=== PATIENT | male | born 1990 | race Caucasian/White ===

== ENCOUNTER 2017-06-23 09:26 | Inpatient (IN) | payer OTHER ==
[2017-06-23 10:37] VITALS: BMI 25.2
--- NOTE | 2017-06-23 11:12 | HP ---
CIWA Score - CIWA Score Nausea/Vomitin-Mild Nausea/No Vomiting Muscle Tremors: 4-Moderate,w/Arms Extend Anxiety: 4-Mod. Anxious/Guarded Agitation: 1-Slight > Activity Paroxysmal Sweats: 1-Minimal Palms Moist Orientation: 0-Oriented Tacttile Disturbances: 1-Very Mild Itch/Numbness Auditory Disturbances: 1-Very Mild Visual Disturbances: 1-Very Mild Sensitivity Headache: 2-Mild CIWA-Ar Total Score: 16 Admission ROS BHS - HPI Chief Complaint: I want to stop drinking, I'm agitated Allergies/Adverse Reactions: Allergies Allergy/AdvReac Type Severity Reaction Status Date / Time No Known Allergies Allergy Verified 06/23/17 11:08 History of Present Illness: 27 yo gentleman here for detox from alcohol. Patient was previously in detox a month ago in [facility]. NO seizures but does have black outs. Noted [place] he gets oxycodone 30mg tid monthly last received 06/19/17 - he states he 'throws it away' - urine tox negative for oxycodone. Exam Limitations: No Limitations - Ebola screening Have you traveled outside of the country in the last 21 days: No Have you had contact with anyone from an Ebola affected area: No Have you been sick,other than usual withdrawal symptoms: No Do you have a fever: No - Review of Systems Constitutional: Loss of Appetite, Malaise, Changes in sleep EENT: reports: Blurred Vision, Nose Congestion Respiratory: reports: Wheezing Cardiac: reports: No Symptoms Reported GI: reports: Nausea, Abdominal cramping : reports: Frequency Musculoskeletal: reports: Joint Pain (right knee) Integumentary: reports: Dryness Neuro: reports: Headache Endocrine: reports: No Symptoms Reported Hematology: reports: No Symptoms Reported Psychiatric: reports: Judgement Intact, Mood/Affect Appropiate, Orientated x3, Agitated, Anxious Other Systems: Reviewed and Negative Patient History - Patient Medical History Hx Asthma: Yes (on meds) Hx Chronic Obstructive Pulmonary Disease (COPD): No Hx Cancer: No Hx Cardiac Disorders: No Hx Congestive Heart Failure: No Hx Hypertension: No Hx Hypercholesterolemia: No Hx Pacemaker: No HX Cerebrovascular Accident: No Hx Seizures: No Hx Dementia: No Hx Diabetes: No Hx Gastrointestinal Disorders: No Hx Liver Disease: No Hx Genitourinary Disorders: No Hx Sexually Transmitted Disorders: No Hx Renal Disease (ESRD): No Hx Thyroid Disease: No Hx Human Immunodeficiency Virus (HIV): No Hx Hepatitis C: No Hx Depression: No Hx Suicide Attempt: No Hx Bipolar Disorder: No Hx Schizophrenia: No - Patient Surgical History Past Surgical History: Yes Hx Orthopedic Surgery: Yes (right knee ) - PPD History Previous Implant?: Yes Documented Results: Negative w/o proof Implanted On Prior R Admission?: No PPD to be Administered?: Yes - Reproductive History Patient is a Female of Child Bearing Age (11 -55 yrs old): No (male) - Smoking Cessation Smoking history: Current some day smoker Aproximately how many cigarettes per day: 1 Initiated information on smoking cessation: Yes 'Breaking Loose' booklet given: 06/23/17 (give on floor) - Substance & Tx. History Hx Alcohol Use: Yes Hx Substance Use: No Substance Use Type: Alcohol Hx Substance Use Treatment: Yes (detox) - Substances Abused Alcohol Route: Oral Frequency: Daily Amount used: 12 pack of 24 oz beer; 1 pint liquor Age of first use: 18 Date of Last Use: 06/23/17 Family Disease History - Family Disease History Family Disease History: Other: Father (living, no contact, etoh), Mother (living , asthma), Brother (two - living - asthma), Sister (two - living - no contact) Admission Physical Exam S - Vital Signs Vital Signs: Vital Signs - 24 hr 06/23/17 10:33 Pulse Rate 79 Respiratory 18 Rate Blood Pressure 126/74 - Physical General Appearance: Yes: Nourished, Appropriately Dressed, Moderate Distress, Irritable, Anxious HEENTM: Yes: Hearing grossly Normal, Normocephalic, Normal Voice, Pharynx Normal , Tm's normal Respiratory: Yes: No Respiratory Distress, Rhonchi, Wheezing Neck: Yes: No masses,lesions,Nodules, Supple Breast: Yes: Breast Exam Deferred Cardiology: Yes: Regular Rhythm, Regular Rate Abdominal: Yes: Flat, Soft Genitourinary: Yes: Frequency Back: Yes: Normal Inspection Musculoskeletal: Yes: full range of Motion, Gait Steady, Other (right knee with surgical scar) Extremities: Yes: Normal Inspection, Non-Tender Neurological: Yes: Fully Oriented, Alert, Normal Response, Other (agitated, restless) Integumentary: Yes: Normal Color, Warm Lymphatic: Yes: Within Normal Limits - Diagnostic (1) Alcohol dependence with uncomplicated withdrawal Current Visit: Yes Status: Chronic (2) Asthma Current Visit: Yes Status: Acute Qualifiers: Asthma severity: moderate (3) Knee pain Current Visit: Yes Status: Acute Qualifiers: Chronicity: chronic Laterality: right Qualified Code(s): M25.561 - Pain in right knee; G89.29 - Other chronic pain; G89.29 - Other chronic pain Cleared for Admission BHS - Detox or Rehab [facility] Level of Care: Medically Managed Detox Regimen/Protocol: Librium [facility] Breath Alcohol Content Breath Alcohol Content: 0.009 Urine Drug Screen - Results Drug Screen Negative: Yes
[2017-06-23] MEDS ORDERED: guaiFENesin/D-METHORPHAN HB 10 ML UNIT-DOSE CUPS PO PRN (11:17)
[2017-06-23] MEDS ORDERED: ACETAMINOPHEN 325 MG TABLET (FP) PO PRN (11:17)
[2017-06-23] MEDS ORDERED: IBUPROFEN 400 MG TABLET (FP) PO PRN (11:17)
[2017-06-23] MEDS ORDERED: MENTHOL/PHENOL 1 EACH UD MM PRN (11:17)
[2017-06-23] MEDS ORDERED: LOPERAMIDE HCL 2 MG CAPSULE PO PRN (11:17)
[2017-06-23] MEDS ORDERED: MAG HYDROX/AL HYDROX/SIMETH 30 ML UNIT-DOSE CUP PO PRN (11:17)
[2017-06-23] MEDS ORDERED: P-EPHED 60MG/TRIPROLIDI 2.5MG TABLET PO PRN (11:17)
[2017-06-23] MEDS ORDERED: MAGNESIUM CITRATE 300 ML BOTTLE PO PRN (11:17)
[2017-06-23] MEDS ORDERED: chlordiazePOXIDE HCL 25 MG CAPSULE PO PRN (11:17)
[2017-06-23] MEDS ORDERED: MAGNESIUM HYDROX 2400MG/30ML ORAL SUSPENSION 30 ML CUP PO PRN (11:17)
[2017-06-23] MEDS ORDERED: hydrOXYzine PAMOATE 25 MG CAPSULE (FP) PO PRN (11:17)
[2017-06-23] MEDS ORDERED: ALBUTEROL SO4 18 GM HFA INHALER IH PRN (11:19)
[2017-06-23] MEDS ORDERED: chlordiazePOXIDE HCL 25 MG CAPSULE PO ONE (13:00)
[2017-06-23] MEDS: METHYL SALICYLATE/MENTHOL OINT 30 GM TUBE TP SCH (14:21)
--- NOTE | 2017-06-23 16:24 | EKG ---
Test Reason : Blood Pressure : / mmHG Vent. Rate : 079 BPM Atrial Rate : 079 BPM P-R Int : 146 ms QRS Dur : 088 ms QT Int : 372 ms P-R-T Axes : 067 064 048 degrees QTc Int : 426 ms NORMAL SINUS RHYTHM NORMAL ECG NO PREVIOUS ECGS AVAILABLE Confirmed by SEAN BOWMAN MD ([id number]) on 06/23/2017 4:23:46 PM Referred By: Josué Bacon Confirmed By:SEAN BOWMAN MD
[2017-06-23] MEDS: chlordiazePOXIDE HCL 25 MG CAPSULE PO SCH ×2 (17:51→22:05)
[2017-06-23 21:38] LABS: URINE APPEARANCE CLEAR; URINE BILIRUBIN NEGATIVE (NEGATIVE); URINE BLOOD NEGATIVE (NEGATIVE); URINE COLOR LTYELLOW; URINE GLUCOSE (UA) NEGATIVE (NEGATIVE); URINE KETONE NEGATIVE (NEGATIVE); URINE LEUK ESTERASE NEGATIVE (NEGATIVE); URINE NITRITE NEGATIVE (NEGATIVE); URINE PROTEIN NEGATIVE (NEGATIVE); URINE UROBILINOGEN NEGATIVE mg/dL (0.2-1.0)
[2017-06-23] MEDS: THIAMINE HCL 100 MG TABLET (FP) PO SCH (22:05)
[2017-06-24] MEDS: chlordiazePOXIDE HCL 25 MG CAPSULE PO SCH ×4 (06:26→21:59)
[2017-06-24 10:04] LABS: HEMATOCRIT 46.4 % (35.4-49); HEMOGLOBIN 14.9 GM/dL (11.7-16.9); MCH 27.4 pg (25.7-33.7); MEAN CELL VOLUME 85.4 fl (80-96); MEAN PLT VOLUME 9.1 fl (7.5-11.1); PLATELET COUNT 255 K/MM3 (134-434); RBC 5.43 M/mm3 (4.00-5.60); RDW 14.2 % (11.9-15.9); WHITE BLOOD COUNT 8.6 K/mm3 (4.0-10.0)
[2017-06-24 10:24] LABS: ALBUMIN 3.7 g/dl (3.4-5.0); ANION GAP 5 (8-16); BILIRUBIN,TOTAL 0.8 mg/dL (0.2-1.0); BLOOD UREA NITROGEN 7 mg/dL (7-18); CALCIUM 8.7 mg/dL (8.5-10.1); CHLORIDE 104 mmol/L (98-107); CO2 32 mmol/L (21-32); GLUCOSE,RANDOM 84 mg/dL (74-106); POTASSIUM 3.7 mmol/L (3.5-5.1); SGOT/AST 18 U/L (15-37); SGPT/ALT 24 U/L (12-78); SODIUM 141 mmol/L (136-145); TOT PROT 7.1 g/dl (6.4-8.2)
[2017-06-24 10:25] LABS: ALK PHOS 110 U/L (45-117)
[2017-06-24] MEDS: PRENATAL VITAMINS W/ FOLIC ACID TABLET (FP) PO SCH (10:41)
[2017-06-24] MEDS: METHYL SALICYLATE/MENTHOL OINT 30 GM TUBE TP SCH (10:42)
--- NOTE | 2017-06-24 11:11 | PN ---
[facility] CIWA - CIWA Score Nausea/Vomitin-Mild Nausea/No Vomiting Muscle Tremors: 3 Anxiety: 3 Agitation: 4-Moderately Restless Paroxysmal Sweats: 3 Orientation: 0-Oriented Tacttile Disturbances: 0-None Auditory Disturbances: 0-None Visual Disturbances: 0-None Headache: 0-None Present CIWA-Ar Total Score: 14 BHS Progress Note (SOAP) Subjective: tremors slight nausea night sweats Objective: 06/24/17 11:10 Vital Signs Temperature 96.2 F L 06/24/17 09:11 Pulse Rate 74 06/24/17 09:11 Respiratory Rate 18 06/24/17 09:11 Blood Pressure 128/89 06/24/17 09:11 O2 Sat by Pulse Oximetry (%) Laboratory Last Values WBC 8.6 K/mm3 (4.0-10.0) 06/24/17 07:30 RBC 5.43 M/mm3 (4.00-5.60) 06/24/17 07:30 Hgb 14.9 GM/dL (11.7-16.9) 06/24/17 07:30 Hct 46.4 % (35.4-49) 06/24/17 07:30 MCV 85.4 fl (80-96) 06/24/17 07:30 MCH 27.4 pg (25.7-33.7) 06/24/17 07:30 MCHC 32.0 g/dl (32.0-35.9) 06/24/17 07:30 RDW 14.2 % (11.9-15.9) 06/24/17 07:30 Plt Count 255 K/MM3 (134-434) 06/24/17 07:30 MPV 9.1 fl (7.5-11.1) 06/24/17 07:30 Sodium 141 mmol/L (136-145) 06/24/17 07:30 Potassium 3.7 mmol/L (3.5-5.1) 06/24/17 07:30 Chloride 104 mmol/L (98-107) 06/24/17 07:30 Carbon Dioxide 32 mmol/L (21-32) 06/24/17 07:30 Anion Gap 5 (8-16) L 06/24/17 07:30 BUN 7 mg/dL (7-18) 06/24/17 07:30 Creatinine 1.0 mg/dL (0.7-1.3) 06/24/17 07:30 Creat Clearance w eGFR > 60 (>60) 06/24/17 07:30 Random Glucose 84 mg/dL (74-106) 06/24/17 07:30 Calcium 8.7 mg/dL (8.5-10.1) 06/24/17 07:30 Total Bilirubin 0.8 mg/dL (0.2-1.0) 06/24/17 07:30 AST 18 U/L (15-37) 06/24/17 07:30 ALT 24 U/L (12-78) 06/24/17 07:30 Alkaline Phosphatase 110 U/L (45-117) 06/24/17 07:30 Total Protein 7.1 g/dl (6.4-8.2) 06/24/17 07:30 Albumin 3.7 g/dl (3.4-5.0) 06/24/17 07:30 Urine Color Ltyellow 06/23/17 14:00 Urine Appearance Clear 06/23/17 14:00 Urine pH 6.0 (5.0-8.0) 06/23/17 14:00 Ur Specific [place] 1.010 (1.001-1.035) 06/23/17 14:00 Urine Protein Negative (NEGATIVE) 06/23/17 14:00 Urine Glucose (UA) Negative (NEGATIVE) 06/23/17 14:00 Urine Ketones Negative (NEGATIVE) 06/23/17 14:00 Urine Blood Negative (NEGATIVE) 06/23/17 14:00 Urine Nitrite Negative (NEGATIVE) 06/23/17 14:00 Urine Bilirubin Negative (NEGATIVE) 06/23/17 14:00 Urine Urobilinogen Negative mg/dL (0.2-1.0) 06/23/17 14:00 Ur Leukocyte Esterase Negative (NEGATIVE) 06/23/17 14:00 labs noted Assessment: 06/24/17 11:11 withdrawal sx no acute distress noted Plan: continue detox
[2017-06-24] MEDS ORDERED: ALBUTEROL SO4 18 GM HFA INHALER IH PRN (21:28)
[2017-06-24] MEDS: THIAMINE HCL 100 MG TABLET (FP) PO SCH (21:59)
[2017-06-25] MEDS: chlordiazePOXIDE HCL 25 MG CAPSULE PO SCH (06:50)
[2017-06-25] MEDS: METHYL SALICYLATE/MENTHOL OINT 30 GM TUBE TP SCH (10:04)
[2017-06-25] MEDS: PRENATAL VITAMINS W/ FOLIC ACID TABLET (FP) PO SCH (10:04)
[2017-06-25] MEDS: chlordiazePOXIDE 5 MG CAPSULE PO SCH ×2 (10:05→18:13)
--- NOTE | 2017-06-25 10:52 | PN ---
[facility] CIWA - CIWA Score Nausea/Vomitin-No Nausea/No Vomiting Muscle Tremors: 4-Moderate,w/Arms Extend Anxiety: 4-Mod. Anxious/Guarded Agitation: 3 Paroxysmal Sweats: No Perspiration Orientation: 0-Oriented Tacttile Disturbances: 2-Mild Itch/Numbness/Burn Auditory Disturbances: 0-None Visual Disturbances: 0-None Headache: 0-None Present CIWA-Ar Total Score: 13 S Progress Note (SOAP) Subjective: SLIGHT ANXIETY, TREMORS. ALERT O X 3. OOB WITH STEADY GAIT. Objective: 06/25/17 10:52 Vital Signs Temperature 95.6 F L 06/25/17 09:13 Pulse Rate 60 06/25/17 09:13 Respiratory Rate 20 06/25/17 09:13 Blood Pressure 124/83 06/25/17 09:13 O2 Sat by Pulse Oximetry (%) Laboratory Last Values WBC 8.6 K/mm3 (4.0-10.0) 06/24/17 07:30 RBC 5.43 M/mm3 (4.00-5.60) 06/24/17 07:30 Hgb 14.9 GM/dL (11.7-16.9) 06/24/17 07:30 Hct 46.4 % (35.4-49) 06/24/17 07:30 MCV 85.4 fl (80-96) 06/24/17 07:30 MCH 27.4 pg (25.7-33.7) 06/24/17 07:30 MCHC 32.0 g/dl (32.0-35.9) 06/24/17 07:30 RDW 14.2 % (11.9-15.9) 06/24/17 07:30 Plt Count 255 K/MM3 (134-434) 06/24/17 07:30 MPV 9.1 fl (7.5-11.1) 06/24/17 07:30 Sodium 141 mmol/L (136-145) 06/24/17 07:30 Potassium 3.7 mmol/L (3.5-5.1) 06/24/17 07:30 Chloride 104 mmol/L (98-107) 06/24/17 07:30 Carbon Dioxide 32 mmol/L (21-32) 06/24/17 07:30 Anion Gap 5 (8-16) L 06/24/17 07:30 BUN 7 mg/dL (7-18) 06/24/17 07:30 Creatinine 1.0 mg/dL (0.7-1.3) 06/24/17 07:30 Creat Clearance w eGFR > 60 (>60) 06/24/17 07:30 Random Glucose 84 mg/dL (74-106) 06/24/17 07:30 Calcium 8.7 mg/dL (8.5-10.1) 06/24/17 07:30 Total Bilirubin 0.8 mg/dL (0.2-1.0) 06/24/17 07:30 AST 18 U/L (15-37) 06/24/17 07:30 ALT 24 U/L (12-78) 06/24/17 07:30 Alkaline Phosphatase 110 U/L (45-117) 06/24/17 07:30 Total Protein 7.1 g/dl (6.4-8.2) 06/24/17 07:30 Albumin 3.7 g/dl (3.4-5.0) 06/24/17 07:30 Urine Color Ltyellow 06/23/17 14:00 Urine Appearance Clear 06/23/17 14:00 Urine pH 6.0 (5.0-8.0) 06/23/17 14:00 Ur Specific [place] 1.010 (1.001-1.035) 06/23/17 14:00 Urine Protein Negative (NEGATIVE) 06/23/17 14:00 Urine Glucose (UA) Negative (NEGATIVE) 06/23/17 14:00 Urine Ketones Negative (NEGATIVE) 06/23/17 14:00 Urine Blood Negative (NEGATIVE) 06/23/17 14:00 Urine Nitrite Negative (NEGATIVE) 06/23/17 14:00 Urine Bilirubin Negative (NEGATIVE) 06/23/17 14:00 Urine Urobilinogen Negative mg/dL (0.2-1.0) 06/23/17 14:00 Ur Leukocyte Esterase Negative (NEGATIVE) 06/23/17 14:00 RPR Titer Nonreactive (NONREACTIVE) 06/24/17 07:30 Assessment: 06/25/17 10:52 WITHDRAWAL SX Plan: CONTINUE DETOX
[2017-06-25] MEDS ORDERED: chlordiazePOXIDE 5 MG CAPSULE PO SCH (17:00)
[2017-06-25] MEDS: THIAMINE HCL 100 MG TABLET (FP) PO SCH (21:58)
[2017-06-25] MEDS: chlordiazePOXIDE HCL 10 MG CAPSULE PO SCH (22:00)
[2017-06-26] MEDS: chlordiazePOXIDE HCL 10 MG CAPSULE PO SCH (05:41)
[2017-06-26 06:08] VITALS: BP 105/67; PULSE 60; TEMP 96.9
[2017-06-26] MEDS: PRENATAL VITAMINS W/ FOLIC ACID TABLET (FP) PO SCH (09:16)
[2017-06-26] MEDS: METHYL SALICYLATE/MENTHOL OINT 30 GM TUBE TP SCH (09:16)
--- NOTE | 2017-06-26 09:31 | DS ---
[facility] Detox Discharge Summary Admission Date: 06/23/17 Discharge Date: 06/26/17 - History Present History: Alcohol Dependence Additional Comments: DETOX COMPLETED. Pertinent Past History: ASTHMA - Physical Exam Results Vital Signs: Vital Signs Temperature 96.9 F L 06/26/17 06:07 Pulse Rate 60 06/26/17 06:07 Respiratory Rate 18 06/26/17 06:07 Blood Pressure 105/67 06/26/17 06:07 O2 Sat by Pulse Oximetry (%) Pertinent Admission Physical Exam Findings: WITHDRAWAL SX Laboratory Last Values WBC 8.6 K/mm3 (4.0-10.0) 06/24/17 07:30 RBC 5.43 M/mm3 (4.00-5.60) 06/24/17 07:30 Hgb 14.9 GM/dL (11.7-16.9) 06/24/17 07:30 Hct 46.4 % (35.4-49) 06/24/17 07:30 MCV 85.4 fl (80-96) 06/24/17 07:30 MCH 27.4 pg (25.7-33.7) 06/24/17 07:30 MCHC 32.0 g/dl (32.0-35.9) 06/24/17 07:30 RDW 14.2 % (11.9-15.9) 06/24/17 07:30 Plt Count 255 K/MM3 (134-434) 06/24/17 07:30 MPV 9.1 fl (7.5-11.1) 06/24/17 07:30 Sodium 141 mmol/L (136-145) 06/24/17 07:30 Potassium 3.7 mmol/L (3.5-5.1) 06/24/17 07:30 Chloride 104 mmol/L (98-107) 06/24/17 07:30 Carbon Dioxide 32 mmol/L (21-32) 06/24/17 07:30 Anion Gap 5 (8-16) L 06/24/17 07:30 BUN 7 mg/dL (7-18) 06/24/17 07:30 Creatinine 1.0 mg/dL (0.7-1.3) 06/24/17 07:30 Creat Clearance w eGFR > 60 (>60) 06/24/17 07:30 Random Glucose 84 mg/dL (74-106) 06/24/17 07:30 Calcium 8.7 mg/dL (8.5-10.1) 06/24/17 07:30 Total Bilirubin 0.8 mg/dL (0.2-1.0) 06/24/17 07:30 AST 18 U/L (15-37) 06/24/17 07:30 ALT 24 U/L (12-78) 06/24/17 07:30 Alkaline Phosphatase 110 U/L (45-117) 06/24/17 07:30 Total Protein 7.1 g/dl (6.4-8.2) 06/24/17 07:30 Albumin 3.7 g/dl (3.4-5.0) 06/24/17 07:30 Urine Color Ltyellow 06/23/17 14:00 Urine Appearance Clear 06/23/17 14:00 Urine pH 6.0 (5.0-8.0) 06/23/17 14:00 Ur Specific [place] 1.010 (1.001-1.035) 06/23/17 14:00 Urine Protein Negative (NEGATIVE) 06/23/17 14:00 Urine Glucose (UA) Negative (NEGATIVE) 06/23/17 14:00 Urine Ketones Negative (NEGATIVE) 06/23/17 14:00 Urine Blood Negative (NEGATIVE) 06/23/17 14:00 Urine Nitrite Negative (NEGATIVE) 06/23/17 14:00 Urine Bilirubin Negative (NEGATIVE) 06/23/17 14:00 Urine Urobilinogen Negative mg/dL (0.2-1.0) 06/23/17 14:00 Ur Leukocyte Esterase Negative (NEGATIVE) 06/23/17 14:00 RPR Titer Nonreactive (NONREACTIVE) 06/24/17 07:30 - Treatment Hospital Course: Detox Protocol Followed, Detoxed Safely, Responded well, Discharged Condition Good - Medication Discharge Medications: Ambulatory Orders Albuterol Sulfate Inhaler - [Ventolin Hfa Inhaler -] 2 inh PO Q4H PRN 06/23/17 Oxycodone HCl 30 mg PO TID 06/23/17 - Diagnosis (1) Asthma Current Visit: Yes Status: Acute Qualifiers: Asthma severity: moderate (2) Knee pain Current Visit: Yes Status: Chronic Qualifiers: Chronicity: chronic Laterality: right Qualified Code(s): M25.561 - Pain in right knee; G89.29 - Other chronic pain; G89.29 - Other chronic pain (3) Nicotine dependence Current Visit: Yes Status: Acute Qualifiers: Nicotine product type: cigarettes Substance use status: in withdrawal Qualified Code(s): F17.213 - Nicotine dependence, cigarettes, with withdrawal (4) Alcohol dependence with uncomplicated withdrawal Current Visit: Yes Status: Acute - AMA Did Patient Leave Against Medical Advice: No
[2017-06-26] MEDS ORDERED: chlordiazePOXIDE HCL 10 MG CAPSULE PO SCH (17:00)
== END 2017-06-26 09:28 | disposition home or self-care (01) | DRG 775 ==
LOC: YASAS 09:26 → Y3N 12:49
PROVIDERS: ADMIT Internal Medicine; ATTEND Internal Medicine
PROC: HZ2ZZZZ Detoxification Services for Substance Abuse Treatment (ICD-10-PCS; principal; 2017-06-23)
DX: F10.230 Alcohol dependence with withdrawal, uncomplicated (principal); F17.213 Nicotine dependence, cigarettes, with withdrawal; J45.909 Unspecified asthma, uncomplicated; M25.561 Pain in right knee; G89.29 Other chronic pain
CPT/HCPCS: 36415; 80053; 81003; 85027; 86593; 93005; 93010

== ENCOUNTER 2020-02-25 20:23 | Inpatient (IN) | payer OTHER ==
--- OUTSIDE RECORDS SUMMARY | 2020-02-25 20:28 | XMS ---
:1990 Author Organization [facility] Support Name Relationship Address Phone UE, UNEMPLOYED Unavailable Unavailable Unavailable UE Unavailable Unavailable Unavailable [place] [address] JOHNNIE JURADO Unavailable [address] [place] [address] Re-disclosure Warning The records that you are about to access may contain information from federally- assisted alcohol or drug abuse programs. If such information is present, then the following federally mandated warning applies: This information has been disclosed to you from records protected by federal confidentiality rules (42 CFR part 2). The federal rules prohibit you from making any further disclosure of this information unless further disclosure is expressly permitted by the written consent of the person to whom it pertains or as otherwise permitted by 42 CFR part 2. A general authorization for the release of medical or other information is NOT sufficient for this purpose. The Federal rules restrict any use of the information to criminally investigate or prosecute any alcohol or drug abuse patient.The records that you are about to access may contain highly sensitive health information, the redisclosure of which is protected by Article 27-F of the [facility] Public Health law. If you continue you may haveaccess to information: Regarding HIV / AIDS; Provided by facilities licensed or operated by the [facility] Office of Mental Health; or Provided by the [facility] Office for People With Developmental Disabilities. If such information is present, then the following [facility] mandated warning applies: This information has been disclosed to you from confidential records which are protected by state law. State law prohibits you from making any further disclosure of this information without the specific written consent of the person to whom it pertains, or as otherwise permitted by law. Any unauthorized further disclosure in violation of state law may result in a fine or detention sentence or both. A general authorization for the release of medical or other information is NOT sufficient authorization for further disclosure. Insurance Providers Payer name Policy type Policy ID Covered Covered constitution party's Policy P haylee / Coverage constitution party ID relationship to Garcia Inf ormation type garcia SUNDAY [id number] SP [id number] 400 HEALTH NON CAP SUNDAY [id number] SP [id number] 400 HEALTH NON CAP Results ID Date Data Source [id number] 01/06/2020 12:00:00 AM EDT [place] Name Value Range Interpretation Code Description Data Delaney rce(s) Supporting Document(s ) COVID-19 [facility] RT-PCR This lab was ordered by [facility] and reported by [facility]. Procedure
[2020-02-25 20:44] VITALS: BMI 26.6
--- NOTE | 2020-02-25 21:07 | HP ---
CIWA Score Nausea/Vomitin Muscle Tremors: 4-Moderate,w/Arms Extend Anxiety: 3 Agitation: 4-Moderately Restless Paroxysmal Sweats: 2 Orientation: 1-Uncertain about Date Tacttile Disturbances: 0-None Auditory Disturbances: 0-None Visual Disturbances: 0-None Headache: 0-None Present CIWA-Ar Total Score: 16 - Admission Criteria [facility] Guidelines: Admission for Medically Managed Detox: Requires at least one of the followin. CIWA greater than 12 2. Seizures within the past 24 hours 3. Delirium tremens within the past 24 hours 4. Hallucinations within the past 24 hours 5. Acute intervention needed for co occurring medical disorder 6. Acute intervention needed for co occurring psychiatric disorder 7. Severe withdrawal that cannot be handled at a lower level of care (continued vomiting, continued diarrhea, abnormal vital signs) requiring intravenous medication and/or fluids 8. Admitting History and Physical - Past Medical History Pulmonary: Yes: Asthma - Smoking History Smoking history: Current some day smoker Have you smoked in the past 12 months: No Aproximately how many cigarettes per day: 1 - Alcohol/Substance Use Hx Alcohol Use: Yes History of Substance Use: reports: Marijuana - Social History ADL: Support Services Occupation: unemployued History of Recent Travel: No Admission ROS [facility] Chief Complaint: Alcohol withdrawal symptoms Allergies/Adverse Reactions: Allergies Allergy/AdvReac Type Severity Reaction Status Date / Time No Known Allergies Allergy Verified 02/25/20 20:40 History of Present Illness: 29 years old male is seeking admission to detox from alcohol. His last admission was for the period 10/05/2019 - 10/24/2019 and he reports that he relapsed a couple of days after he was discharged. He drinks 3 pints of vodka and 2 x 6 pack 12oz. Verdin beer. He has medical history of asthma, eczema, psych. history of depression, anxiety and he denies suicidal ideation at this time. He is unemployed, homeless and denies legal issues. 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 His CIWA score is 16 and SHAZIA is .211 Exam Limitations: No Limitations - Ebola screening Have you traveled outside of the country in the last 21 days: No Have you had contact with anyone from an Ebola affected area: No Have you been sick,other than usual withdrawal symptoms: No Do you have a fever: No - Review of Systems Constitutional: Chills, Loss of Appetite, Malaise, Night Sweats, Changes in sleep EENT: reports: No Symptoms Reported Respiratory: reports: No Symptoms reported Cardiac: reports: No Symptoms Reported GI: reports: Nausea, Poor Appetite, Poor Fluid Intake, Abdominal cramping Musculoskeletal: reports: Back Pain Integumentary: reports: Dryness, Flushing Neuro: reports: Tremors Endocrine: reports: No Symptoms Reported Hematology: reports: No Symptoms Reported Psychiatric: reports: Mood/Affect Appropiate, Orientated x3, Agitated, Anxious Other Systems: Reviewed and Negative Patient History - Patient Medical History Hx Anemia: No Hx Asthma: Yes (Albuterol) Hx Chronic Obstructive Pulmonary Disease (COPD): No Hx Cancer: No Hx Cardiac Disorders: No Hx Congestive Heart Failure: No Hx Hypertension: No Hx Hypercholesterolemia: No Hx Pacemaker: No HX Cerebrovascular Accident: No Hx Seizures: No Hx Dementia: No Hx Diabetes: No Hx Gastrointestinal Disorders: No Hx Liver Disease: No Hx Genitourinary Disorders: No Hx Sexually Transmitted Disorders: No Hx Renal Disease (ESRD): No Hx Thyroid Disease: No Hx Human Immunodeficiency Virus (HIV): No (Negative 06/2019) Hx Hepatitis C: No Hx Depression: Yes (+ anxiety - Not on medication) Hx Suicide Attempt: No (Denies suicidal ideation at this time) Hx Bipolar Disorder: No Hx Schizophrenia: No - Patient Surgical History Past Surgical History: Yes Hx Neurologic Surgery: No Hx Cataract Extraction: No Hx Cardiac Surgery: No Hx Lung Surgery: No Hx Breast Surgery: No Hx Breast Biopsy: No Hx Abdominal Surgery: No Hx Appendectomy: No Hx Cholecystectomy: No Hx Genitourinary Surgery: No Hx Section: No Hx Orthopedic Surgery: Yes (right knee 2015,) Anesthesia Reaction: No - PPD History Previous Implant?: Yes Documented Results: Negative w/proof Implanted On Prior R Admission?: Yes Date: 10/07/19 Results: 0 mm PPD to be Administered?: No - Reproductive History Patient is a Female of Child Bearing Age (11 -55 yrs old): No (Male) - Smoking Cessation Smoking history: Unknown if ever smoked Have you smoked in the past 12 months: No Hx Chewing Tobacco Use: No Initiated information on smoking cessation: No - Substance & Tx. History Hx Alcohol Use: Yes Hx Substance Use: Yes Substance Use Type: Alcohol, Marijuana Hx Substance Use Treatment: Yes ([facility]) - Substances abused Alcohol Substance route: Oral Frequency: Daily Amount used: 3 pints of vodka and 2 x 6 pack 12oz. [place]din beer Age of first use: 16 Date of last use: 02/25/20 Admission Physical Exam [facility] - Vital Signs Vital Signs: Vital Signs - 24 hr 02/25/20 02/25/20 20:43 20:46 Temperature 97.4 F L 97.4 F L Pulse Rate 94 H 94 H Respiratory 19 19 Rate Blood Pressure 110/72 110/72 - Physical General Appearance: Yes: Intoxicated, Tremorous, Irritable, Anxious HEENTM: Yes: Within Normal Limits Respiratory: Yes: Lungs Clear, Normal Breath Sounds, No Respiratory Distress Neck: Yes: Within Normal Limits Breast: Yes: Breast Exam Deferred Cardiology: Yes: Tachycardia Abdominal: Yes: Normal Bowel Sounds Genitourinary: Yes: Within Normal Limits Back: Yes: Normal Inspection Musculoskeletal: Yes: Back pain Extremities: Yes: Tremors Neurological: Yes: Within Normal Limits Integumentary: Yes: Warm Lymphatic: Yes: Within Normal Limits - Diagnostic (1) Cannabis dependence Current Visit: Yes Status: Chronic (2) Depression Current Visit: Yes Status: Chronic Qualifiers: Depression Type: unspecified Qualified Code(s): F32.9 - Major depressive disorder, single episode, unspecified (3) Anxiety Current Visit: Yes Status: Chronic (4) Alcohol dependence with uncomplicated withdrawal Current Visit: Yes Status: Acute (5) Asthma Current Visit: Yes Status: Chronic Qualifiers: Asthma severity: mild Asthma persistence: intermittent Cleared for Admission [facility] - Detox or Rehab [facility] Level of Care: Medically Managed Detox Regimen/Protocol: Librium Claeared for Rehab Admission: No Breathalyzer - Breathalyzer Breathalyzer: 0.211 Urine Drug Screen - Test Device Lot number: [id number] Expiration date: 01/12/22 - Control Is test valid?: Yes - Results Drug screen NEGATIVE: No Urine drug screen results: THC-Marijuana Inpatient Rehab Admission - Rehab Decision to Admit Inpatient rehab admission?: No
[2020-02-25] MEDS ORDERED: ACETAMINOPHEN 325 MG TABLET (FP) PO PRN ×2 (21:19)
[2020-02-25] MEDS ORDERED: MAG HYDROX/AL HYDROX/SIMETH 30 ML UNIT-DOSE CUP PO PRN (21:19)
[2020-02-25] MEDS ORDERED: IBUPROFEN 400 MG TABLET (FP) PO PRN (21:19)
[2020-02-25] MEDS ORDERED: METHOCARBAMOL 500 MG TABLET PO PRN (21:19)
[2020-02-25] MEDS ORDERED: NICOTINE POLACRILEX 2 MG GUM BUC PRN (21:19)
[2020-02-25] MEDS ORDERED: chlordiazePOXIDE HCL 25 MG CAPSULE PO PRN (21:19)
[2020-02-25] MEDS ORDERED: MAGNESIUM HYDROX 2400MG/30ML ORAL SUSPENSION 30 ML CUP PO PRN (21:19)
[2020-02-25] MEDS ORDERED: ONDANSETRON *ODT* 4 MG TABLET SL PRN (21:19)
[2020-02-25] MEDS ORDERED: BISMUTH SUBSALICYLATE 524 MG/30 ML UD PO PRN (21:19)
[2020-02-25] MEDS ORDERED: MAGNESIUM CITRATE 300 ML BOTTLE PO PRN (21:19)
[2020-02-25] MEDS ORDERED: MENTHOL/PHENOL 1 EACH UD MM PRN (21:19)
[2020-02-25] MEDS ORDERED: ALBUTEROL SO4 HFA INHALER IH PRN (21:20)
--- OUTSIDE RECORDS SUMMARY | 2020-02-25 21:23 | XMS ---
:1990 Author Organization [facility] Support Name Relationship Address Phone UE, UNEMPLOYED Unavailable Unavailable Unavailable UE Unavailable Unavailable Unavailable JOHNNIE [place] [address] JOHNNIE JURADO Unavailable [address] [place] [address] Re-disclosure Warning The records that you are [...] is protected by Article 27-F of the [facility] Public Health law. If you continue you may haveaccess to information: Regarding HIV / AIDS; Provided by facilities licensed or operated by the [facility] Office of Mental Health; or Provided by the [facility] Office for People With Developmental Disabilities. If such information is present, then the following [facility] mandated warning applies: This information has been [...] law may result in a fine or long-term sentence or both. A general authorization for the release of medical or other information is NOT sufficient authorization for further disclosure. Insurance Providers Payer name Policy type Policy ID Covered Covered republican's Policy P haylee / Coverage republican ID relationship to Garcia Inf ormation type garcia SUNDAY [id number] SP [id number] 400 HEALTH NON CAP SUNDAY [id number] SP [id number] 400 HEALTH NON CAP Results ID Date Data Source [id number] 01/06/2020 12:00:00 AM EDT [facility] Name Value Range Interpretation Code Description Data Delaney rce(s) Supporting Document(s ) COVID-19 [facility] RT-PCR This lab was ordered by [facility] and reported by [facility]. Procedure
[2020-02-25] MEDS: chlordiazePOXIDE HCL 25 MG CAPSULE PO SCH (22:17)
[2020-02-25] MEDS: hydrOXYzine PAMOATE 25 MG CAPSULE (FP) PO SCH (22:17)
[2020-02-25] MEDS: THIAMINE HCL 100 MG TABLET (FP) PO SCH (22:17)
[2020-02-25] MEDS: MELATONIN 5 MG TABLETS PO SCH (22:17)
[2020-02-26] MEDS: hydrOXYzine PAMOATE 25 MG CAPSULE (FP) PO SCH ×5 (05:42→22:23)
[2020-02-26] MEDS: chlordiazePOXIDE HCL 25 MG CAPSULE PO SCH ×4 (05:42→22:23)
--- NOTE | 2020-02-26 09:54 | EKG ---
Test Reason : Blood Pressure : / mmHG Vent. Rate : 069 BPM Atrial Rate : 069 BPM P-R Int : 162 ms QRS Dur : 094 ms QT Int : 396 ms P-R-T Axes : 063 046 039 degrees QTc Int : 424 ms NORMAL SINUS RHYTHM MINIMAL VOLTAGE CRITERIA FOR LVH, MAY BE NORMAL VARIANT BORDERLINE ECG WHEN COMPARED WITH ECG OF 23-JUN-2017 14:37, NO SIGNIFICANT CHANGE WAS FOUND Confirmed by SALLIE CAGE, SANDRO ([id number]) on 02/26/2020 9:53:48 AM Referred By: Nilson Nguyen Confirmed By:SANDRO RIZO MD
[2020-02-26] MEDS: PRENATAL VITAMINS W/ FOLIC ACID TABLET (FP) PO SCH (10:06)
[2020-02-26] MEDS: NICOTINE 14 MG/24 HOURS TOPICAL PATCH TD SCH (10:07)
[2020-02-26 11:04] LABS: ALBUMIN 3.8 g/dl (3.4-5.0); BILIRUBIN,TOTAL 0.9 mg/dL (0.2-1); BLOOD UREA NITROGEN 8.4 mg/dL (7-18); CREATININE 0.8 mg/dL (0.55-1.3); POTASSIUM 3.9 mmol/L (3.5-5.1); TOT PROT 7.3 g/dl (6.4-8.2)
[2020-02-26 11:12] LABS: HEMATOCRIT 42.7 % (35.4-49); HEMOGLOBIN 13.8 GM/dL (11.7-16.9); MCH 28.3 pg (25.7-33.7); MCHC 32.3 g/dl (32.0-35.9); MEAN CELL VOLUME 87.8 fl (80-96); MEAN PLT VOLUME 8.9 fl (7.5-11.1); PLATELET COUNT 186 K/MM3 (134-434); RBC 4.86 M/mm3 (4.00-5.60); RDW 15.4 % (11.9-15.9); WHITE BLOOD COUNT 3.4 K/mm3 (4.0-10.0)
--- NOTE | 2020-02-26 11:55 | PN ---
S CIWA - CIWA Score Nausea/Vomitin Muscle Tremors: 2 Anxiety: 2 Agitation: 1-Slight > Activity Paroxysmal Sweats: No Perspiration Orientation: 0-Oriented Tacttile Disturbances: 1-Very Mild Itch/Numbness Auditory Disturbances: 0-None Visual Disturbances: 0-None Headache: 2-Mild CIWA-Ar Total Score: 10 BHS Progress Note (SOAP) Subjective: alert,irritable,anxious,interrupted sleep,tremor Objective: 02/26/20 16:06 Vital Signs Temperature 98.2 F 02/26/20 12:36 Pulse Rate 69 02/26/20 12:36 Respiratory Rate 18 02/26/20 12:36 Blood Pressure 112/67 02/26/20 12:36 O2 Sat by Pulse Oximetry (%) 95 02/26/20 12:36 Laboratory Last Values WBC 3.4 K/mm3 (4.0-10.0) L 02/26/20 08:00 RBC 4.86 M/mm3 (4.00-5.60) 02/26/20 08:00 Hgb 13.8 GM/dL (11.7-16.9) 02/26/20 08:00 Hct 42.7 % (35.4-49) 02/26/20 08:00 MCV 87.8 fl (80-96) 02/26/20 08:00 MCH 28.3 pg (25.7-33.7) 02/26/20 08:00 MCHC 32.3 g/dl (32.0-35.9) 02/26/20 08:00 RDW 15.4 % (11.9-15.9) 02/26/20 08:00 Plt Count 186 K/MM3 (134-434) D 02/26/20 08:00 MPV 8.9 fl (7.5-11.1) 02/26/20 08:00 Sodium 142 mmol/L (136-145) 02/26/20 08:00 Potassium 3.9 mmol/L (3.5-5.1) 02/26/20 08:00 Chloride 105 mmol/L (98-107) 02/26/20 08:00 Carbon Dioxide 30 mmol/L (21-32) 02/26/20 08:00 Anion Gap 8 MMOL/L (8-16) 02/26/20 08:00 BUN 8.4 mg/dL (7-18) 02/26/20 08:00 Creatinine 0.8 mg/dL (0.55-1.3) 02/26/20 08:00 Est GFR (CKD-EPI)AfAm 137.96 02/26/20 08:00 Est GFR (CKD-EPI)NonAf 119.03 02/26/20 08:00 Random Glucose 65 mg/dL (74-106) L 02/26/20 08:00 Calcium 9.0 mg/dL (8.5-10.1) 02/26/20 08:00 Total Bilirubin 0.9 mg/dL (0.2-1) 02/26/20 08:00 AST 59 U/L (15-37) H 02/26/20 08:00 ALT 66 U/L (13-61) H 02/26/20 08:00 Alkaline Phosphatase 100 U/L (45-117) 02/26/20 08:00 Total Protein 7.3 g/dl (6.4-8.2) 02/26/20 08:00 Albumin 3.8 g/dl (3.4-5.0) 02/26/20 08:00 Syphilis Serology Non-reactive (NONREACTIVE) 02/26/20 08:00 Assessment: 02/26/20 16:08 withdrawal symptom Plan: continue detox bgm once
[2020-02-26] MEDS: THIAMINE HCL 100 MG TABLET (FP) PO SCH (22:23)
[2020-02-26] MEDS: MELATONIN 5 MG TABLETS PO SCH (22:23)
[2020-02-27] MEDS: chlordiazePOXIDE HCL 25 MG CAPSULE PO SCH ×4 (06:03→22:07)
[2020-02-27] MEDS: hydrOXYzine PAMOATE 25 MG CAPSULE (FP) PO SCH ×2 (06:03→10:16)
--- NOTE | 2020-02-27 09:01 | PN ---
S CIWA - CIWA Score Nausea/Vomitin Muscle Tremors: None Anxiety: 1-Mildly Anxious Agitation: 0-Normal Activity Paroxysmal Sweats: No Perspiration Orientation: 0-Oriented Tacttile Disturbances: 0-None Auditory Disturbances: 0-None Visual Disturbances: 0-None Headache: 0-None Present CIWA-Ar Total Score: 3 BHS Progress Note (SOAP) Subjective: Mild nausea, anxiety Objective: 02/27/20 08:59 PE Gnl: WDWN, in bed, in no apparent distress MS: nl mentation Motor: moves limbs well Coordination: intact Laboratory Tests 02/25/20 02/26/20 02/26/20 21:30 08:00 08:00 WBC 3.4 L RBC 4.86 Hgb 13.8 Hct 42.7 MCV 87.8 MCH 28.3 MCHC 32.3 RDW 15.4 Plt Count 186 D MPV 8.9 Sodium Potassium Chloride Carbon Dioxide Anion Gap BUN Creatinine Est GFR (CKD-EPI)AfAm Est GFR (CKD-EPI)NonAf POC Glucometer Random Glucose Calcium Total Bilirubin AST ALT Alkaline Phosphatase Total Protein Albumin Syphilis Serology Non-reactive COVID-19 (TRE) Not detected 02/26/20 02/26/20 08:00 16:53 WBC RBC Hgb Hct MCV MCH MCHC RDW Plt Count MPV Sodium 142 Potassium 3.9 Chloride 105 Carbon Dioxide 30 Anion Gap 8 BUN 8.4 Creatinine 0.8 Est GFR (CKD-EPI)AfAm 137.96 Est GFR (CKD-EPI)NonAf 119.03 POC Glucometer 103 Random Glucose 65 L Calcium 9.0 Total Bilirubin 0.9 AST 59 H ALT 66 H Alkaline Phosphatase 100 Total Protein 7.3 Albumin 3.8 Syphilis Serology COVID-19 (TRE) Active Medications Generic Name Dose Route Start Last Admin Trade Name Freq PRN Reason Stop Dose Admin Acetaminophen 650 mg 02/25/20 21:19 Tylenol - PO Q6H PRN PAIN LEVEL 4 - 6 Acetaminophen 650 mg 02/25/20 21:19 Tylenol - PO Q6H PRN FEVER Al Hydroxide/Mg Hydroxide 30 ml 02/25/20 21:19 Mylanta Oral Suspension - PO Q6H PRN DYSPEPSIA Albuterol Sulfate 2 puff 02/25/20 21:20 Ventolin Hfa Inhaler - IH Q4H PRN ASTHMA Bismuth Subsalicylate 524 mg 02/25/20 21:19 Pepto-Bismol - PO Q1H PRN DIARRHEA Chlordiazepoxide HCl 25 mg 02/27/20 05:00 02/27/20 06:03 Librium - PO 02/27/20 23:01 25 mg [id number] [place] Administration Chlordiazepoxide HCl 25 mg 02/25/20 21:19 Librium - PO 02/27/20 23:59 Q4H PRN WITHDRAWAL(CONT SUBST) Chlordiazepoxide HCl 10 mg 02/28/20 05:00 Librium - PO 02/28/20 23:01 [id number] [place] Chlordiazepoxide HCl 10 mg 02/29/20 05:00 Librium - PO 02/29/20 17:01 Q12H [place] Chlordiazepoxide HCl 10 mg 02/28/20 00:00 Librium - PO 02/29/20 00:00 Q4H PRN WITHDRAWAL(CONT SUBST) Chlordiazepoxide HCl 10 mg 03/01/20 05:00 Librium - PO 03/01/20 05:01 ONCE@0500 ONE Eucalyptus/Menthol/Phenol/Sorbitol 1 each 02/25/20 21:19 Cepastat Lozenge - MM 03/02/20 21:19 Q4H PRN SORE THROAT Hydroxyzine Pamoate 25 mg 02/25/20 22:00 02/27/20 06:03 Vistaril - PO 03/02/20 21:19 Not Given Q4HWA [facility] Ibuprofen 400 mg 02/25/20 21:19 Motrin - PO Q6H PRN PAIN LEVEL 1 - 3 Magnesium Citrate 300 ml 02/25/20 21:19 Citroma - PO Q48H PRN CONSTIPATION Magnesium Hydroxide 30 ml 02/25/20 21:19 Milk Of Magnesia - PO PRN PRN CONSTIPATION Melatonin 5 mg 02/25/20 22:00 02/26/20 22:23 Melatonin PO 5 mg HS [facility] Administration Methocarbamol 500 mg 02/25/20 21:19 Robaxin - PO 03/02/20 21:19 Q6H PRN MUSCLE SPASMS Nicotine 14 mg 02/26/20 10:00 02/26/20 10:07 Nicoderm Patch - TD Not Given DAILY [facility] Nicotine Polacrilex 2 mg 02/25/20 21:19 Nicorette Gum - BUC Q2H PRN NICOTINE REPLACEMENT RX Ondansetron HCl 4 mg 02/25/20 21:19 Zofran Odt - SL Q8H PRN Nausea/Vomiting Multivit/Folic Acid/Iron 1 tab 02/26/20 10:00 02/26/20 10:06 Vitamins (Sjr) - PO 1 tab DAILY [place] Administration Thiamine HCl 100 mg 02/25/20 22:00 02/26/20 22:23 Vitamin B1 - PO 100 mg HS [place] Administration Vital Signs Temperature 96.8 F L 02/27/20 07:35 Pulse Rate 51 L 02/27/20 07:35 Respiratory Rate 18 02/27/20 07:35 Blood Pressure 101/70 02/27/20 07:35 O2 Sat by Pulse Oximetry (%) 98 02/27/20 07:36 Assessment: IMP 1. Alcohol withdrawal, uncomplicated 2. Hx: asthma, eczema 3. Hx: depression, anxiety 4. Homeless Plan: 1. Librium detox protocol, projected completion on 03/01
[2020-02-27] MEDS: PRENATAL VITAMINS W/ FOLIC ACID TABLET (FP) PO SCH (10:16)
[2020-02-27] MEDS: NICOTINE 14 MG/24 HOURS TOPICAL PATCH TD SCH (10:16)
[2020-02-27] MEDS ORDERED: hydrOXYzine PAMOATE 25 MG CAPSULE (FP) PO PRN (13:10)
[2020-02-27] MEDS: THIAMINE HCL 100 MG TABLET (FP) PO SCH (21:42)
[2020-02-27] MEDS: MELATONIN 5 MG TABLETS PO SCH (21:43)
[2020-02-28] MEDS ORDERED: chlordiazePOXIDE HCL 10 MG CAPSULE PO PRN
[2020-02-28] MEDS: chlordiazePOXIDE HCL 10 MG CAPSULE PO SCH ×4 (05:19→22:24)
[2020-02-28] MEDS: PRENATAL VITAMINS W/ FOLIC ACID TABLET (FP) PO SCH (10:08)
[2020-02-28] MEDS: NICOTINE 14 MG/24 HOURS TOPICAL PATCH TD SCH (10:09)
--- NOTE | 2020-02-28 10:25 | PN ---
S CIWA - CIWA Score Nausea/Vomitin-No Nausea/No Vomiting Muscle Tremors: None Anxiety: 2 Agitation: 0-Normal Activity Paroxysmal Sweats: 2 Orientation: 0-Oriented Tacttile Disturbances: 0-None Auditory Disturbances: 0-None Visual Disturbances: 0-None Headache: 2-Mild CIWA-Ar Total Score: 6 BHS Progress Note (SOAP) Subjective: c/o anxiety, headche, and sweats. Objective: 02/28/20 10:22 Vital Signs 02/28/20 02/28/20 06:28 08:50 Temperature 96.9 F L 97.9 F Pulse Rate 60 71 Respiratory 18 18 Rate Blood Pressure 119/67 124/79 O2 Sat by Pulse 98 Oximetry (%) Laboratory Last Values WBC 3.4 K/mm3 (4.0-10.0) L 02/26/20 08:00 RBC 4.86 M/mm3 (4.00-5.60) 02/26/20 08:00 Hgb 13.8 GM/dL (11.7-16.9) 02/26/20 08:00 Hct 42.7 % (35.4-49) 02/26/20 08:00 MCV 87.8 fl (80-96) 02/26/20 08:00 MCH 28.3 pg (25.7-33.7) 02/26/20 08:00 MCHC 32.3 g/dl (32.0-35.9) 02/26/20 08:00 RDW 15.4 % (11.9-15.9) 02/26/20 08:00 Plt Count 186 K/MM3 (134-434) D 02/26/20 08:00 MPV 8.9 fl (7.5-11.1) 02/26/20 08:00 Sodium 142 mmol/L (136-145) 02/26/20 08:00 Potassium 3.9 mmol/L (3.5-5.1) 02/26/20 08:00 Chloride 105 mmol/L (98-107) 02/26/20 08:00 Carbon Dioxide 30 mmol/L (21-32) 02/26/20 08:00 Anion Gap 8 MMOL/L (8-16) 02/26/20 08:00 BUN 8.4 mg/dL (7-18) 02/26/20 08:00 Creatinine 0.8 mg/dL (0.55-1.3) 02/26/20 08:00 Est GFR (CKD-EPI)AfAm 137.96 02/26/20 08:00 Est GFR (CKD-EPI)NonAf 119.03 02/26/20 08:00 POC Glucometer 96 UNITS (80-120) 02/28/20 05:18 Random Glucose 65 mg/dL (74-106) L 02/26/20 08:00 Calcium 9.0 mg/dL (8.5-10.1) 02/26/20 08:00 Total Bilirubin 0.9 mg/dL (0.2-1) 02/26/20 08:00 AST 59 U/L (15-37) H 02/26/20 08:00 ALT 66 U/L (13-61) H 02/26/20 08:00 Alkaline Phosphatase 100 U/L (45-117) 02/26/20 08:00 Total Protein 7.3 g/dl (6.4-8.2) 02/26/20 08:00 Albumin 3.8 g/dl (3.4-5.0) 02/26/20 08:00 Syphilis Serology Non-reactive (NONREACTIVE) 02/26/20 08:00 COVID-19 (TRE) Not detected (Not Detected) 02/25/20 21:30 Labs noted. Assessment: 02/28/20 10:23 AOX3, in no acute respiratory distress. Full ROM, ambulating in the unit. Withdrawal symptoms. Plan: continue detox.
[2020-02-28] MEDS: MELATONIN 5 MG TABLETS PO SCH (21:13)
[2020-02-28] MEDS: THIAMINE HCL 100 MG TABLET (FP) PO SCH (21:13)
[2020-02-28] MEDS: HYDROCORTISONE 1% TOPICAL CREAM 30 GM TUBE TP SCH (21:13)
[2020-02-29] MEDS: chlordiazePOXIDE HCL 10 MG CAPSULE PO SCH ×2 (05:35→18:16)
[2020-02-29] MEDS: NICOTINE 14 MG/24 HOURS TOPICAL PATCH TD SCH (10:22)
[2020-02-29] MEDS: HYDROCORTISONE 1% TOPICAL CREAM 30 GM TUBE TP SCH ×2 (10:22→23:10)
[2020-02-29] MEDS: PRENATAL VITAMINS W/ FOLIC ACID TABLET (FP) PO SCH (10:22)
--- NOTE | 2020-02-29 14:58 | PN ---
S CIWA - CIWA Score Nausea/Vomitin-No Nausea/No Vomiting Muscle Tremors: 1-None Visible, but [place] Anxiety: 1-Mildly Anxious Agitation: 0-Normal Activity Paroxysmal Sweats: No Perspiration Orientation: 0-Oriented Tacttile Disturbances: 0-None Auditory Disturbances: 0-None Visual Disturbances: 1-Very Mild Sensitivity Headache: 1-Very Mild CIWA-Ar Total Score: 4 BHS Progress Note (SOAP) Subjective: 29 years old male was admitted on 02/25/20 for alcohol withdrawal sx management treating with librium detox regiment feels better today requests lab result discussion with the staff writer health teaching on alcohol related GI neuron cardiac insults Objective: 02/29/20 15:00 Vital Signs - 24 hr 02/28/20 02/28/20 02/29/20 16:58 21:01 06:16 Temperature 97.7 F 97.3 F L 97.3 F L Pulse Rate 71 62 61 Respiratory 18 18 18 Rate Blood Pressure 126/75 139/93 102/60 O2 Sat by Pulse 99 99 Oximetry (%) 02/29/20 02/29/20 08:39 12:47 Temperature 96.8 F L 97.2 F L Pulse Rate 74 72 Respiratory 18 18 Rate Blood Pressure 122/82 134/86 O2 Sat by Pulse 100 Oximetry (%) Laboratory Tests 02/25/20 02/26/20 02/26/20 21:30 08:00 08:00 WBC 3.4 L RBC 4.86 Hgb 13.8 Hct 42.7 MCV 87.8 MCH 28.3 MCHC 32.3 RDW 15.4 Plt Count 186 D MPV 8.9 Sodium Potassium Chloride Carbon Dioxide Anion Gap BUN Creatinine Est GFR (CKD-EPI)AfAm Est GFR (CKD-EPI)NonAf POC Glucometer Random Glucose Calcium Total Bilirubin AST ALT Alkaline Phosphatase Total Protein Albumin Syphilis Serology Non-reactive COVID-19 (TRE) Not detected 02/26/20 02/26/20 02/28/20 08:00 16:53 05:18 WBC RBC Hgb Hct MCV MCH MCHC RDW Plt Count MPV Sodium 142 Potassium 3.9 Chloride 105 Carbon Dioxide 30 Anion Gap 8 BUN 8.4 Creatinine 0.8 Est GFR (CKD-EPI)AfAm 137.96 Est GFR (CKD-EPI)NonAf 119.03 POC Glucometer 103 96 Random Glucose 65 L Calcium 9.0 Total Bilirubin 0.9 AST 59 H ALT 66 H Alkaline Phosphatase 100 Total Protein 7.3 Albumin 3.8 Syphilis Serology COVID-19 (TRE) 02/29/20 06:11 WBC RBC Hgb Hct MCV MCH MCHC RDW Plt Count MPV Sodium Potassium Chloride Carbon Dioxide Anion Gap BUN Creatinine Est GFR (CKD-EPI)AfAm Est GFR (CKD-EPI)NonAf POC Glucometer 102 Random Glucose Calcium Total Bilirubin AST ALT Alkaline Phosphatase Total Protein Albumin Syphilis Serology COVID-19 (TRE) lab noted Assessment: 02/29/20 15:01 alcohol withdrawal Plan: librim regiment
[2020-02-29] MEDS: MELATONIN 5 MG TABLETS PO SCH (23:10)
[2020-02-29] MEDS: THIAMINE HCL 100 MG TABLET (FP) PO SCH (23:11)
[2020-03-01] MEDS ORDERED: chlordiazePOXIDE HCL 10 MG CAPSULE PO ONE (05:00)
[2020-03-01 06:25] VITALS: BP 117/73; PULSE 61; TEMP 97.7
[2020-03-01] MEDS: PRENATAL VITAMINS W/ FOLIC ACID TABLET (FP) PO SCH (09:10)
--- NOTE | 2020-03-01 12:50 | DS ---
[facility] Detox Discharge Summary Admission Date: 02/25/20 Discharge Date: 03/01/20 - History Present History: Alcohol Dependence Additional Comments: 29 years old male was admitted on 02/25/20 for alcohol withdrawal sx management treated with librium detox regiment mr wilcox has completed the librium regiment and is tolerated well General Appearance: Yes: alert, speech clearly mild Tremorous, not Irritable, less Anxious HEENTM: Yes: Within Normal Limits Respiratory: Yes: Lungs Clear, Normal Breath Sounds, No Respiratory Distress Neck: Yes: Within Normal Limits Breast: Yes: Breast Exam Deferred Cardiology: Yes: Tachycardia Abdominal: Yes: Normal Bowel Sounds Genitourinary: Yes: Within Normal Limits Back: Yes: Normal Inspection Musculoskeletal: Yes: Back pain Extremities: Yes: Tremors Neurological: Yes: Within Normal Limits Integumentary: Yes: Warm Lymphatic: Yes: Within Normal Limits Pertinent Past History: time for discharge 33 minutes - Physical Exam Results Vital Signs: Vital Signs Temperature 97.7 F 03/01/20 05:30 Pulse Rate 61 03/01/20 05:30 Respiratory Rate 18 03/01/20 05:30 Blood Pressure 117/73 03/01/20 05:30 O2 Sat by Pulse Oximetry (%) 99 03/01/20 05:30 Pertinent Admission Physical Exam Findings: alcohol withdrawal Vital Signs - 24 hr 02/29/20 02/29/20 03/01/20 16:38 20:50 05:30 Temperature 97.3 F L 97.1 F L 97.7 F Pulse Rate 66 63 61 Respiratory 16 18 18 Rate Blood Pressure 128/80 129/83 117/73 O2 Sat by Pulse 100 99 Oximetry (%) Laboratory Tests 02/25/20 02/26/20 02/26/20 21:30 08:00 08:00 WBC 3.4 L RBC 4.86 Hgb 13.8 Hct 42.7 MCV 87.8 MCH 28.3 MCHC 32.3 RDW 15.4 Plt Count 186 D MPV 8.9 Sodium Potassium Chloride Carbon Dioxide Anion Gap BUN Creatinine Est GFR (CKD-EPI)AfAm Est GFR (CKD-EPI)NonAf POC Glucometer Random Glucose Calcium Total Bilirubin AST ALT Alkaline Phosphatase Total Protein Albumin Syphilis Serology Non-reactive COVID-19 (TRE) Not detected 02/26/20 02/26/20 02/28/20 08:00 16:53 05:18 WBC RBC Hgb Hct MCV MCH MCHC RDW Plt Count MPV Sodium 142 Potassium 3.9 Chloride 105 Carbon Dioxide 30 Anion Gap 8 BUN 8.4 Creatinine 0.8 Est GFR (CKD-EPI)AfAm 137.96 Est GFR (CKD-EPI)NonAf 119.03 POC Glucometer 103 96 Random Glucose 65 L Calcium 9.0 Total Bilirubin 0.9 AST 59 H ALT 66 H Alkaline Phosphatase 100 Total Protein 7.3 Albumin 3.8 Syphilis Serology COVID-19 (TRE) 02/29/20 06:11 WBC RBC Hgb Hct MCV MCH MCHC RDW Plt Count MPV Sodium Potassium Chloride Carbon Dioxide Anion Gap BUN Creatinine Est GFR (CKD-EPI)AfAm Est GFR (CKD-EPI)NonAf POC Glucometer 102 Random Glucose Calcium Total Bilirubin AST ALT Alkaline Phosphatase Total Protein Albumin Syphilis Serology COVID-19 (TRE) lab noted - Treatment Hospital Course: Detox Protocol Followed, Detoxed Safely, Responded well, Discharged Condition Good, Rehab Referral Accepted Patient has Accepted a Rehab Referral to: [facility] - Medication Discharge Medications: Ambulatory Orders Albuterol Sulfate Inhaler - [Ventolin HFA Inhaler -] 2 inh PO Q4H PRN #1 inhaler 10/23/19 - Diagnosis (1) Substance induced mood disorder Status: Suspected (2) Alcohol dependence with uncomplicated withdrawal Status: Acute (3) Asthma Status: Chronic Qualifiers: Asthma severity: mild Asthma persistence: intermittent Asthma complication type: with status asthmaticus Qualified Code(s): J45.22 - Mild intermittent asthma with status asthmaticus (4) Nicotine dependence Status: Acute Qualifiers: Nicotine product type: cigarettes Substance use status: in withdrawal Qualified Code(s): F17.213 - Nicotine dependence, cigarettes, with withdrawal - AMA Did Patient Leave Against Medical Advice: No CIWA Score - CIWA Score Nausea/Vomitin-No Nausea/No Vomiting Muscle Tremors: 1-None Visible, but [place] Anxiety: 1-Mildly Anxious Agitation: 0-Normal Activity Paroxysmal Sweats: No Perspiration Orientation: 0-Oriented Tacttile Disturbances: 0-None Auditory Disturbances: 0-None Visual Disturbances: 0-None Headache: 0-None Present CIWA-Ar Total Score: 2
== END 2020-03-01 09:23 | disposition home or self-care (01) | DRG 775 ==
LOC: YASAS 20:23 → Y3N 21:19
PROVIDERS: ADMIT Allergy & Immunology; ATTEND Allergy & Immunology
PROC: HZ2ZZZZ Detoxification Services for Substance Abuse Treatment (ICD-10-PCS; principal; 2020-02-25)
DX: F10.230 Alcohol dependence with withdrawal, uncomplicated (principal); F12.20 Cannabis dependence, uncomplicated; F17.210 Nicotine dependence, cigarettes, uncomplicated; F32.9 Major depressive disorder, single episode, unspecified; F41.9 Anxiety disorder, unspecified; J45.20 Mild intermittent asthma, uncomplicated; L30.9 Dermatitis, unspecified; Z59.0 Homelessness
CPT/HCPCS: 36415; 80053; 82962; 85027; 86780; 93005; 93010; U0003

== ENCOUNTER 2020-07-30 08:59 | Inpatient (IN) | payer OTHER ==
[2020-07-30 09:56] VITALS: BMI 25.9
[2020-07-30] MEDS ORDERED: chlordiazePOXIDE HCL 25 MG CAPSULE PO PRN (10:07)
[2020-07-30] MEDS ORDERED: MAG HYDROX/AL HYDROX/SIMETH 30 ML UNIT-DOSE CUP PO PRN (10:07)
[2020-07-30] MEDS ORDERED: IBUPROFEN 400 MG TABLET (FP) PO PRN (10:07)
[2020-07-30] MEDS ORDERED: ONDANSETRON *ODT* 4 MG TABLET SL PRN (10:07)
[2020-07-30] MEDS ORDERED: BISMUTH SUBSALICYLATE 524 MG/30 ML UD PO PRN (10:07)
[2020-07-30] MEDS ORDERED: MAGNESIUM HYDROX 2400MG/30ML ORAL SUSPENSION 30 ML CUP PO PRN (10:07)
[2020-07-30] MEDS ORDERED: MAGNESIUM CITRATE 300 ML BOTTLE PO PRN (10:07)
[2020-07-30] MEDS ORDERED: ACETAMINOPHEN 325 MG TABLET (FP) PO PRN ×2 (10:07)
[2020-07-30] MEDS ORDERED: METHOCARBAMOL 500 MG TABLET PO PRN (10:07)
[2020-07-30] MEDS ORDERED: MENTHOL/PHENOL 1 EACH UD MM PRN (10:07)
[2020-07-30] MEDS ORDERED: ALBUTEROL SO4 HFA INHALER IH PRN (10:10)
[2020-07-30] MEDS ORDERED: chlordiazePOXIDE HCL 25 MG CAPSULE ONE (10:49)
[2020-07-30] MEDS: chlordiazePOXIDE HCL 25 MG CAPSULE PO SCH ×3 (10:53→22:15)
[2020-07-30] MEDS: PRENATAL VITAMINS W/ FOLIC ACID TABLET (FP) PO SCH (11:42)
[2020-07-30] MEDS ORDERED: hydrOXYzine PAMOATE 50 MG CAPSULE (FP) PO PRN (12:33)
[2020-07-30 13:57] LABS: POTASSIUM 4.1 mmol/L (3.5-5.1)
[2020-07-30] MEDS ORDERED: hydrOXYzine PAMOATE 25 MG CAPSULE (FP) PO SCH (14:00)
[2020-07-30 14:02] LABS: HEMATOCRIT 42.9 % (35.4-49); HEMOGLOBIN 14.4 GM/dL (11.7-16.9); MCH 29.6 pg (25.7-33.7); MCHC 33.7 g/dl (32.0-35.9); MEAN CELL VOLUME 87.8 fl (80-96); MEAN PLT VOLUME 8.6 fl (7.5-11.1); PLATELET COUNT 236 K/MM3 (134-434); RBC 4.88 M/mm3 (4.00-5.60); WHITE BLOOD COUNT 4.6 K/mm3 (4.0-10.0)
[2020-07-30 14:03] LABS: ALBUMIN 4.4 g/dl (3.4-5.0); CALCIUM 9.2 mg/dL (8.5-10.1)
[2020-07-30 14:06] LABS: CREATININE 0.8 mg/dL (0.55-1.3)
[2020-07-30 14:08] LABS: BILIRUBIN,TOTAL 0.5 mg/dL (0.2-1)
[2020-07-30 15:52] LABS: HIV INTERPRETATION NEGATIVE (NEGATIVE)
[2020-07-30] MEDS: THIAMINE HCL 100 MG TABLET (FP) PO SCH (22:15)
[2020-07-30] MEDS: MELATONIN 5 MG TABLETS PO SCH (22:15)
[2020-07-30] MEDS: SUVOREXANT 10 MG TABLET PO PRN (22:15)
[2020-07-31] MEDS: chlordiazePOXIDE HCL 25 MG CAPSULE PO SCH ×4 (05:29→22:04)
[2020-07-31] MEDS: PRENATAL VITAMINS W/ FOLIC ACID TABLET (FP) PO SCH (10:34)
[2020-07-31] MEDS: MELATONIN 5 MG TABLETS PO SCH (22:03)
[2020-07-31] MEDS: THIAMINE HCL 100 MG TABLET (FP) PO SCH (22:04)
[2020-07-31] MEDS: SUVOREXANT 10 MG TABLET PO PRN (22:04)
[2020-08-01] MEDS: chlordiazePOXIDE HCL 25 MG CAPSULE PO SCH ×4 (05:29→22:06)
[2020-08-01] MEDS: PRENATAL VITAMINS W/ FOLIC ACID TABLET (FP) PO SCH (10:14)
[2020-08-01] MEDS: MELATONIN 5 MG TABLETS PO SCH (21:55)
[2020-08-01] MEDS: THIAMINE HCL 100 MG TABLET (FP) PO SCH (21:55)
[2020-08-01] MEDS: SUVOREXANT 10 MG TABLET PO PRN (21:57)
[2020-08-02] MEDS ORDERED: chlordiazePOXIDE HCL 10 MG CAPSULE PO PRN
[2020-08-02] MEDS: chlordiazePOXIDE HCL 10 MG CAPSULE PO SCH ×4 (05:58→22:30)
[2020-08-02] MEDS: PRENATAL VITAMINS W/ FOLIC ACID TABLET (FP) PO SCH (10:11)
[2020-08-02] MEDS: THIAMINE HCL 100 MG TABLET (FP) PO SCH (22:03)
[2020-08-02] MEDS: MELATONIN 5 MG TABLETS PO SCH (22:03)
[2020-08-03] MEDS: chlordiazePOXIDE HCL 10 MG CAPSULE PO SCH ×2 (07:07→17:22)
[2020-08-03] MEDS: PRENATAL VITAMINS W/ FOLIC ACID TABLET (FP) PO SCH (10:08)
[2020-08-03 13:02] VITALS: BP 135/79; PULSE 85; TEMP 97.7
[2020-08-04] MEDS ORDERED: chlordiazePOXIDE HCL 10 MG CAPSULE PO ONE (05:00)
== END 2020-08-03 18:12 | disposition other institution (70) | DRG 775 ==
LOC: YASAS 08:59 → Y3N 10:57
PROVIDERS: ADMIT Allergy & Immunology; ATTEND Allergy & Immunology
PROC: HZ2ZZZZ Detoxification Services for Substance Abuse Treatment (ICD-10-PCS; principal; 2020-07-30)
DX: F10.230 Alcohol dependence with withdrawal, uncomplicated (principal); F12.10 Cannabis abuse, uncomplicated; F17.213 Nicotine dependence, cigarettes, with withdrawal; F10.282 Alcohol dependence with alcohol-induced sleep disorder; F10.280 Alcohol dependence with alcohol-induced anxiety disorder; J45.20 Mild intermittent asthma, uncomplicated; Z87.81 Personal history of (healed) traumatic fracture; Z98.890 Other specified postprocedural states; Z56.0 Unemployment, unspecified; Z59.0 Homelessness
CPT/HCPCS: 36415; 80053; 85027; 86780; 87389; C9803; U0003

== ENCOUNTER 2020-08-03 18:13 | Inpatient (IN) | payer OTHER ==
[2020-08-03] MEDS ORDERED: IBUPROFEN 400 MG TABLET (FP) PO PRN (20:29)
[2020-08-03] MEDS ORDERED: MENTHOL/PHENOL 1 EACH UD MM PRN (20:29)
[2020-08-03] MEDS ORDERED: LOPERAMIDE HCL 2 MG CAPSULE PO PRN (20:29)
[2020-08-03] MEDS ORDERED: MAGNESIUM HYDROX 2400MG/30ML ORAL SUSPENSION 30 ML CUP PO PRN (20:29)
[2020-08-03] MEDS ORDERED: guaiFENesin 200 MG/10 ML 10 ML UNIT-DOSE CUPS PO PRN (20:29)
[2020-08-03] MEDS ORDERED: MAGNESIUM CITRATE 300 ML BOTTLE PO PRN (20:29)
[2020-08-03] MEDS ORDERED: MAG HYDROX/AL HYDROX/SIMETH 30 ML UNIT-DOSE CUP PO PRN (20:29)
[2020-08-03] MEDS ORDERED: NICOTINE POLACRILEX 2 MG GUM BUC PRN (20:29)
[2020-08-03] MEDS ORDERED: ACETAMINOPHEN 325 MG TABLET (FP) PO PRN (20:29)
[2020-08-03] MEDS ORDERED: P-EPHED 60MG/TRIPROLIDI 2.5MG TABLET PO PRN (20:29)
[2020-08-03] MEDS: MELATONIN 5 MG TABLETS PO SCH (21:22)
[2020-08-03] MEDS: THIAMINE HCL 100 MG TABLET (FP) PO SCH (21:22)
[2020-08-03] MEDS: hydrOXYzine PAMOATE 25 MG CAPSULE (FP) PO SCH (21:23)
[2020-08-04] MEDS: hydrOXYzine PAMOATE 25 MG CAPSULE (FP) PO SCH ×5 (05:58→22:06)
[2020-08-04] MEDS: PRENATAL VITAMINS W/ FOLIC ACID TABLET (FP) PO SCH (10:02)
[2020-08-04] MEDS: NICOTINE 7 MG/24 HOURS TOPICAL PATCH TD SCH (10:03)
[2020-08-04] MEDS ORDERED: COLLOIDAL OATMEAL 1 BAR EACH TP PRN (12:06)
[2020-08-04] MEDS: MINERAL OIL/PETROLAT/WATER TOPICAL CREAM 113 GM JAR TP SCH (14:38)
[2020-08-04] MEDS: MELATONIN 5 MG TABLETS PO SCH (21:35)
[2020-08-04] MEDS: THIAMINE HCL 100 MG TABLET (FP) PO SCH (21:35)
[2020-08-04] MEDS: ALBUTEROL SO4 HFA INHALER IH PRN (21:38)
[2020-08-05] MEDS: hydrOXYzine PAMOATE 25 MG CAPSULE (FP) PO SCH ×5 (06:43→21:31)
[2020-08-05] MEDS: ALBUTEROL SO4 HFA INHALER IH PRN (10:04)
[2020-08-05] MEDS: NICOTINE 7 MG/24 HOURS TOPICAL PATCH TD SCH (10:05)
[2020-08-05] MEDS: PRENATAL VITAMINS W/ FOLIC ACID TABLET (FP) PO SCH (10:05)
[2020-08-05] MEDS: MINERAL OIL/PETROLAT/WATER TOPICAL CREAM 113 GM JAR TP SCH (10:05)
[2020-08-05] MEDS: HYDROCORTISONE 1% TOPICAL CREAM 30 GM TUBE TP PRN ×2 (10:07→21:30)
[2020-08-05] MEDS: MELATONIN 5 MG TABLETS PO SCH (21:31)
[2020-08-05] MEDS: THIAMINE HCL 100 MG TABLET (FP) PO SCH (21:31)
[2020-08-06] MEDS: hydrOXYzine PAMOATE 25 MG CAPSULE (FP) PO SCH ×2 (06:47→09:53)
[2020-08-06] MEDS: PRENATAL VITAMINS W/ FOLIC ACID TABLET (FP) PO SCH (09:52)
[2020-08-06] MEDS: MINERAL OIL/PETROLAT/WATER TOPICAL CREAM 113 GM JAR TP SCH (09:53)
[2020-08-06] MEDS: NICOTINE 7 MG/24 HOURS TOPICAL PATCH TD SCH (09:53)
[2020-08-06] MEDS: ALBUTEROL SO4 HFA INHALER IH PRN (16:54)
[2020-08-06] MEDS: THIAMINE HCL 100 MG TABLET (FP) PO SCH (21:28)
[2020-08-06] MEDS: MELATONIN 5 MG TABLETS PO SCH (21:29)
[2020-08-06] MEDS: HYDROCORTISONE 1% TOPICAL CREAM 30 GM TUBE TP PRN (21:29)
[2020-08-07] MEDS: PRENATAL VITAMINS W/ FOLIC ACID TABLET (FP) PO SCH (10:16)
[2020-08-07] MEDS: MINERAL OIL/PETROLAT/WATER TOPICAL CREAM 113 GM JAR TP SCH (10:16)
[2020-08-07] MEDS: MELATONIN 5 MG TABLETS PO SCH (21:39)
[2020-08-07] MEDS: THIAMINE HCL 100 MG TABLET (FP) PO SCH (21:39)
[2020-08-08] MEDS: MINERAL OIL/PETROLAT/WATER TOPICAL CREAM 113 GM JAR TP SCH (10:18)
[2020-08-08] MEDS: HYDROCORTISONE 1% TOPICAL CREAM 30 GM TUBE TP PRN (10:18)
[2020-08-08] MEDS: PRENATAL VITAMINS W/ FOLIC ACID TABLET (FP) PO SCH (10:18)
[2020-08-08] MEDS: MELATONIN 5 MG TABLETS PO SCH (21:38)
[2020-08-08] MEDS: THIAMINE HCL 100 MG TABLET (FP) PO SCH (21:38)
[2020-08-09] MEDS: MINERAL OIL/PETROLAT/WATER TOPICAL CREAM 113 GM JAR TP SCH (09:46)
[2020-08-09] MEDS: PRENATAL VITAMINS W/ FOLIC ACID TABLET (FP) PO SCH (09:46)
[2020-08-09] MEDS: BUDESONIDE/FORMETEROL FUMARATE 160/4.5 mcg INHALER IH SCH ×2 (12:29→21:40)
[2020-08-09] MEDS ORDERED: LIDOCAINE VISCOUS 2% ORAL/TOP 20 ML UNIT-DOSE CUP MM PRN (16:11)
[2020-08-09] MEDS: MELATONIN 5 MG TABLETS PO SCH (21:40)
[2020-08-09] MEDS: THIAMINE HCL 100 MG TABLET (FP) PO SCH (21:40)
[2020-08-10] MEDS: ALBUTEROL SO4 HFA INHALER IH PRN (06:19)
[2020-08-10] MEDS: HYDROCORTISONE 1% TOPICAL CREAM 30 GM TUBE TP PRN (06:20)
[2020-08-10] MEDS: BUDESONIDE/FORMETEROL FUMARATE 160/4.5 mcg INHALER IH SCH ×2 (09:48→21:43)
[2020-08-10] MEDS: MINERAL OIL/PETROLAT/WATER TOPICAL CREAM 113 GM JAR TP SCH (09:48)
[2020-08-10] MEDS: PRENATAL VITAMINS W/ FOLIC ACID TABLET (FP) PO SCH (09:48)
[2020-08-10] MEDS: SELENIUM SULFIDE 2.25% 180 ML SHAMPOO TP SCH (18:42)
[2020-08-10] MEDS: THIAMINE HCL 100 MG TABLET (FP) PO SCH (21:43)
[2020-08-10] MEDS: MELATONIN 5 MG TABLETS PO SCH (21:44)
[2020-08-11] MEDS: PRENATAL VITAMINS W/ FOLIC ACID TABLET (FP) PO SCH (10:12)
[2020-08-11] MEDS: BUDESONIDE/FORMETEROL FUMARATE 160/4.5 mcg INHALER IH SCH ×2 (10:12→21:30)
[2020-08-11] MEDS: HYDROCORTISONE 1% TOPICAL CREAM 30 GM TUBE TP PRN (10:13)
[2020-08-11] MEDS: MINERAL OIL/PETROLAT/WATER TOPICAL CREAM 113 GM JAR TP SCH (10:13)
[2020-08-11] MEDS: SELENIUM SULFIDE 2.25% 180 ML SHAMPOO TP SCH (12:48)
[2020-08-11] MEDS: MELATONIN 5 MG TABLETS PO SCH (21:30)
[2020-08-11] MEDS: THIAMINE HCL 100 MG TABLET (FP) PO SCH (21:30)
[2020-08-12] MEDS: PRENATAL VITAMINS W/ FOLIC ACID TABLET (FP) PO SCH (09:34)
[2020-08-12] MEDS: BUDESONIDE/FORMETEROL FUMARATE 160/4.5 mcg INHALER IH SCH ×2 (09:35→21:27)
[2020-08-12] MEDS: SELENIUM SULFIDE 2.25% 180 ML SHAMPOO TP SCH (09:35)
[2020-08-12] MEDS: MINERAL OIL/PETROLAT/WATER TOPICAL CREAM 113 GM JAR TP SCH (09:35)
[2020-08-12] MEDS: MELATONIN 5 MG TABLETS PO SCH (21:27)
[2020-08-12] MEDS: THIAMINE HCL 100 MG TABLET (FP) PO SCH (21:27)
[2020-08-13] MEDS: SELENIUM SULFIDE 2.25% 180 ML SHAMPOO TP SCH (10:05)
[2020-08-13] MEDS: PRENATAL VITAMINS W/ FOLIC ACID TABLET (FP) PO SCH (10:05)
[2020-08-13] MEDS: MINERAL OIL/PETROLAT/WATER TOPICAL CREAM 113 GM JAR TP SCH (10:05)
[2020-08-13] MEDS: BUDESONIDE/FORMETEROL FUMARATE 160/4.5 mcg INHALER IH SCH ×2 (10:06→21:30)
[2020-08-13] MEDS: THIAMINE HCL 100 MG TABLET (FP) PO SCH (21:28)
[2020-08-13] MEDS: MELATONIN 5 MG TABLETS PO SCH (21:28)
[2020-08-13] MEDS: hydrOXYzine PAMOATE 25 MG CAPSULE (FP) PO PRN (21:29)
[2020-08-14] MEDS ORDERED: PT OWN MED DRAWER 7, Y5N ONE (09:20)
[2020-08-14] MEDS: MINERAL OIL/PETROLAT/WATER TOPICAL CREAM 113 GM JAR TP SCH (10:21)
[2020-08-14] MEDS: SELENIUM SULFIDE 2.25% 180 ML SHAMPOO TP SCH (10:22)
[2020-08-14] MEDS: PRENATAL VITAMINS W/ FOLIC ACID TABLET (FP) PO SCH (10:22)
[2020-08-14] MEDS: BUDESONIDE/FORMETEROL FUMARATE 160/4.5 mcg INHALER IH SCH ×2 (10:22→21:40)
[2020-08-14] MEDS: MELATONIN 5 MG TABLETS PO SCH (21:40)
[2020-08-14] MEDS: THIAMINE HCL 100 MG TABLET (FP) PO SCH (21:40)
[2020-08-14] MEDS: hydrOXYzine PAMOATE 25 MG CAPSULE (FP) PO PRN (21:40)
[2020-08-15] MEDS: SELENIUM SULFIDE 2.25% 180 ML SHAMPOO TP SCH (10:04)
[2020-08-15] MEDS: MINERAL OIL/PETROLAT/WATER TOPICAL CREAM 113 GM JAR TP SCH (10:05)
[2020-08-15] MEDS: BUDESONIDE/FORMETEROL FUMARATE 160/4.5 mcg INHALER IH SCH ×2 (10:05→21:20)
[2020-08-15] MEDS: PRENATAL VITAMINS W/ FOLIC ACID TABLET (FP) PO SCH (10:05)
[2020-08-15] MEDS: hydrOXYzine PAMOATE 25 MG CAPSULE (FP) PO PRN (21:20)
[2020-08-15] MEDS: THIAMINE HCL 100 MG TABLET (FP) PO SCH (21:20)
[2020-08-15] MEDS: MELATONIN 5 MG TABLETS PO SCH (21:21)
[2020-08-16 07:04] VITALS: TEMP 97.8
[2020-08-16] MEDS: PRENATAL VITAMINS W/ FOLIC ACID TABLET (FP) PO SCH (09:51)
[2020-08-16] MEDS: MINERAL OIL/PETROLAT/WATER TOPICAL CREAM 113 GM JAR TP SCH (09:51)
[2020-08-16] MEDS: BUDESONIDE/FORMETEROL FUMARATE 160/4.5 mcg INHALER IH SCH ×2 (09:51→21:35)
[2020-08-16] MEDS: SELENIUM SULFIDE 2.25% 180 ML SHAMPOO TP SCH (09:51)
[2020-08-16] MEDS: MELATONIN 5 MG TABLETS PO SCH (21:36)
[2020-08-16] MEDS: hydrOXYzine PAMOATE 25 MG CAPSULE (FP) PO PRN (21:36)
[2020-08-16] MEDS: THIAMINE HCL 100 MG TABLET (FP) PO SCH (21:36)
[2020-08-16] MEDS ORDERED: PT OWN MED DRAWER 7, Y5N ONE (21:37)
[2020-08-17 07:04] VITALS: BP 123/73; PULSE 61
[2020-08-17] MEDS: PRENATAL VITAMINS W/ FOLIC ACID TABLET (FP) PO SCH (09:51)
[2020-08-17] MEDS: MINERAL OIL/PETROLAT/WATER TOPICAL CREAM 113 GM JAR TP SCH (09:52)
[2020-08-17] MEDS: BUDESONIDE/FORMETEROL FUMARATE 160/4.5 mcg INHALER IH SCH (09:52)
[2020-08-17] MEDS: SELENIUM SULFIDE 2.25% 180 ML SHAMPOO TP SCH (09:52)
== END 2020-08-17 10:20 | disposition home or self-care (01) | DRG 772 ==
LOC: YASAS 18:13 → Y5N 18:15
PROVIDERS: ADMIT Allergy & Immunology; ATTEND Allergy & Immunology
PROC: HZ42ZZZ Group Counseling for Substance Abuse Treatment, Cognitive-Behavioral (ICD-10-PCS; principal; 2020-08-03)
DX: F10.20 Alcohol dependence, uncomplicated (principal); F12.20 Cannabis dependence, uncomplicated; F17.210 Nicotine dependence, cigarettes, uncomplicated; F32.9 Major depressive disorder, single episode, unspecified; F41.9 Anxiety disorder, unspecified; J45.909 Unspecified asthma, uncomplicated; L30.9 Dermatitis, unspecified; Z87.81 Personal history of (healed) traumatic fracture; Z98.890 Other specified postprocedural states
CPT/HCPCS: C9803; U0003

== ENCOUNTER 2024-02-04 16:34 | Inpatient (IN) | payer OTHER ==
[2024-02-04 17:11] VITALS: BMI 22.6
[2024-02-04] MEDS ORDERED: ALBUTEROL SO4 HFA INHALER IH PRN (17:19)
[2024-02-04] MEDS ORDERED: ONDANSETRON *ODT* 4 MG TABLET SL PRN (17:27)
[2024-02-04] MEDS ORDERED: guaiFENesin 600 MG TABLET.ER (FP) PO PRN (17:27)
[2024-02-04] MEDS ORDERED: NICOTINE POLACRILEX 2 MG LOZENGE BC PRN (17:27)
[2024-02-04] MEDS ORDERED: MAGNESIUM HYDROX 2400MG/30ML ORAL SUSPENSION 30 ML CUP PO PRN (17:27)
[2024-02-04] MEDS ORDERED: NICOTINE POLACRILEX 2 MG GUM BUC PRN (17:27)
[2024-02-04] MEDS ORDERED: DICYCLOMINE HCL 10 MG CAPSULE PO PRN (17:27)
[2024-02-04] MEDS ORDERED: ACETAMINOPHEN 325 MG TABLET (FP) PO PRN (17:27)
[2024-02-04] MEDS ORDERED: MAG HYDROX/AL HYDROX/SIMETH 30 ML UNIT-DOSE CUP PO PRN (17:27)
[2024-02-04] MEDS ORDERED: IBUPROFEN 600 MG TABLET (FP) PO PRN (17:27)
[2024-02-04] MEDS ORDERED: POLYETHYLENE GLYCOL (HEALTHYLAX) 3350 17 GM PACKET PO PRN (17:27)
[2024-02-04] MEDS ORDERED: LOPERAMIDE HCL 2 MG CAPSULE PO PRN (17:27)
[2024-02-04] MEDS ORDERED: IBUPROFEN 400 MG TABLET (FP) PO PRN (17:27)
[2024-02-04] MEDS ORDERED: BENZOCAINE/MENTHOL (CHLORASEPTIC ) LOZENGE MM PRN (17:27)
[2024-02-04] MEDS ORDERED: BENZONATATE 200 MG CAPSULE PO PRN (17:27)
[2024-02-04] MEDS ORDERED: BISMUTH SUBSALICYLATE 524 MG/30 ML PO PRN (17:27)
[2024-02-04] MEDS: chlordiazePOXIDE HCL 25 MG CAPSULE PO PRN (18:42)
[2024-02-04] MEDS: chlordiazePOXIDE HCL 25 MG CAPSULE PO SCH (18:43)
[2024-02-04] MEDS: BUDESONIDE/FORMETEROL FUMARATE 160/4.5 mcg INHALER IH SCH (22:10)
[2024-02-04] MEDS: MELATONIN 5 MG TABLETS PO SCH (22:12)
[2024-02-04] MEDS: AMMONIUM LACTATE 12% LOTION 225 GM BOTTLE TP PRN (22:12)
[2024-02-04] MEDS: THIAMINE 100 MG TABLET PO SCH (22:13)
[2024-02-05] MEDS: BACITRACIN 0.9 GM PACKET TP SCH (10:03)
[2024-02-05] MEDS: FOLIC ACID 1 MG TABLET (FP) PO SCH (10:04)
[2024-02-05] MEDS: PRENATAL VITAMINS W/ FOLIC ACID TABLET (FP) PO SCH (10:04)
[2024-02-05] MEDS: METHOCARBAMOL 500 MG TABLET PO PRN (22:02)
[2024-02-06] MEDS: chlordiazePOXIDE HCL 10 MG CAPSULE PO SCH (05:27)
[2024-02-06 11:21] LABS: POTASSIUM 4.4 mmol/L (3.5-5.1)
[2024-02-06 11:27] LABS: BLOOD UREA NITROGEN 8.1 mg/dL (7-18); CALCIUM 9.6 mg/dL (8.5-10.1)
[2024-02-06 11:28] LABS: ALBUMIN 3.4 g/dl (3.4-5.0)
[2024-02-06 11:31] LABS: CREATININE 0.7 mg/dL (0.55-1.3)
[2024-02-06 11:32] LABS: BILIRUBIN,TOTAL 0.3 mg/dL (0.2-1)
[2024-02-06 11:33] LABS: TOT PROT 6.7 g/dl (6.4-8.2)
[2024-02-06 11:35] LABS: HEMATOCRIT 36.8 % (35.4-49); HEMOGLOBIN 12.1 GM/dL (11.7-16.9); MCH 28.4 pg (25.7-33.7); MCHC 32.9 g/dl (32.0-35.9); MEAN CELL VOLUME 86.2 fl (80-96); PLATELET COUNT 214 10^3/uL (134-434); RBC 4.27 M/mm3 (4.00-5.60); RDW 17.4 % (11.9-15.9)
[2024-02-07] MEDS ORDERED: chlordiazePOXIDE HCL 10 MG CAPSULE PO PRN
[2024-02-07] MEDS: chlordiazePOXIDE HCL 10 MG CAPSULE PO SCH (05:25)
[2024-02-08] MEDS: chlordiazePOXIDE HCL 10 MG CAPSULE PO ONE (06:23)
[2024-02-08 09:02] VITALS: BP 116/69; PULSE 77; RESP 15; TEMP 98.6
== END 2024-02-08 10:10 | disposition home or self-care (01) | DRG 775 ==
LOC: YASAS 16:34 → Y3N 18:24
PROVIDERS: ADMIT Allergy & Immunology; ATTEND Surgery
PROC: HZ2ZZZZ Detoxification Services for Substance Abuse Treatment (ICD-10-PCS; principal; 2024-02-04)
DX: F10.230 Alcohol dependence with withdrawal, uncomplicated (principal); F12.20 Cannabis dependence, uncomplicated; F17.210 Nicotine dependence, cigarettes, uncomplicated; J45.909 Unspecified asthma, uncomplicated; Z87.81 Personal history of (healed) traumatic fracture; Z99.89 Dependence on other enabling machines and devices
CPT/HCPCS: 0241U-QW; 36415; 70450-TC; 71045-TC-FY; 80053; 80305; 80307; 82550; 82553; 82803; 82962; 83605; 83735; 84100; 84484; 85025; 85027; 85610; 86705; 86709; 86780; 86803; 87389; 87491; 87517; 87591; 93005; 93010; 97116-GP; 97161-GP; G0378; J0131